=== PATIENT | male | born 1950 | race Caucasian/White ===

== ENCOUNTER 2017-10-28 13:00 | Outpatient (CLI) | payer MEDICARE, BC | END 2017-10-28 13:01 | disposition home or self-care (01) | LOC: BICRAD 13:00 | PROVIDERS: ATTEND Family Medicine | DX: M47.22 Other spondylosis with radiculopathy, cervical region (principal); Z98.1 Arthrodesis status | CPT/HCPCS: 72052 ==

== ENCOUNTER 2018-06-15 15:30 | Outpatient (CLI) | payer MEDICARE, BC ==
[~2018-06-15 15:30] MED LIST: Gadobenate Dimeglumine 529 MG/1 ML (20ML VIAL) ONE
--- NOTE | 2018-06-15 17:49 | MRI ---
MRI LUMBAR SPINE WITH AND WITHOUT CONTRAST: INDICATIONS: A 68-year-old male with low back pain for six to eight months with a history of two back surgeries in 1994. TECHNIQUE: Multiplanar, multisequence MR images were obtained of the lumbar spine with and without contrast. Th e patient received 16 mL of MultiHance for the examination. FINDINGS: The visualized retroperitoneum and paravertebral soft tissues are normal appearing. The conus is seen to terminate at approximately L1. There is post procedural change of a left hemila minectomy at L5. At L5-S1, there is a broad-based disk bulge with a superimposed central disk protrusion. There is fa cet hypertrophy bilaterally. There is loss of disk space height. Constellation of findings induces moderate bilateral neural foraminal narrowing. At L4-L5, there is a broad-based disk bulge with a superimposed left paracentral to left foraminal di sk protrusion. The disk protrusion causes severe left lateral recess narrowing with probable impinge ment of the traversing left L5 nerve root, best seen on image 35 of series 7 and on image 14 of serie s 3. The protrusion also induces moderate left neural foraminal narrowing. There is mild right neur al foraminal narrowing due to the broad-based bulge and facet hypertrophy. At L3-L4, there is broad-based bulge with facet hypertrophy, inducing mild bilateral neural foraminal narrowing. The broad-based bulge does cause some mild left lateral recess narrowing with encroachme nt of the traversing left L4 nerve root, without definite impingement, best seen on image 28 of serie s 4. At L2-L3, there is mild facet joint degenerative change and broad-based bulge. At L1-L2, there is no appreciable central canal or neural foraminal narrowing. At T12-L1, there is no appreciable central canal or neural foraminal narrowing. Post contrast images demonstrate no significant abnormal enhancement. IMPRESSION: 1. Left paracentral disk protrusion at L4-L5 induces severe left lateral recess narrowing with proba ble impingement of the traversing left L5 nerve root. The protrusion extends into the left neural fo ramina, causing moderate left-sided neural foraminal narrowing. 2. Moderate bilateral neural foraminal narrowing at L5-S1. 3. There is mild left lateral recess narrowing at L3-L4 due to an asymmetric left broad-based bulge. This encroaches on the traversing left L4 nerve root without definite impingement. POS: [facility]
== END 2018-06-15 15:31 | disposition home or self-care (01) ==
LOC: SCSMRI 15:30
PROVIDERS: ATTEND Family Medicine
DX: M51.16 Intervertebral disc disorders with radiculopathy, lumbar region (principal); M99.83 Other biomechanical lesions of lumbar region
CPT/HCPCS: 72158; A9579

== ENCOUNTER 2018-11-24 07:58 | Outpatient (CLI) | payer MEDICARE, BC ==
[2018-11-24] MEDS ORDERED: Gadobenate Dimeglumine 529 MG/1 ML (20ML VIAL) ONE (11:43)
--- NOTE | 2018-11-24 12:01 | MRI ---
MRI CERVICAL SPINE WITH AND WITHOUT CONTRAST: Date: 11/24/18 Multiplanar, multisequential imaging of cervical spine obtained. Postcontrast images obtained. INDICATION: Cervical radiculopathy. FINDINGS: Postoperative changes are noted at C4-5. Anterior plate and screws are present which produce artifact . Mild anterior wedging of the C4 and C5 vertebra. Posterior height and alignment is preserved. There is a slight posterolisthesis of C5-6. At C3-4, mild posterior disc bulge and spondylosis efface the anterior subarachnoid space and abut th e anterior cord, slightly more pronounced paracentrally on the left. Mild foraminal narrowing due to facet and uncinate hypertrophy. Postoperative changes at C4-5. Anterior subarachnoid space is mildly effaced due to spondylosis. Bila teral foraminal narrowing at this level due to uncinate and facet hypertrophy. At C5-6, disc bulge and spondylosis abut the anterior cord. Facet and uncinate hypertrophy results in mild foraminal narrowing bilaterally. At C6-7, minimal disc bulge. Anterior subarachnoid space is minimally effaced. No significant central canal or foraminal stenosis. Cord signal appears normally maintained. IMPRESSION: 1. Postoperative changes at C4-5 as described. 2. Posterior disc bulge and spondylosis at C3-4 imping on the anterior cord, slightly more prominent to the left of midline. Spondylosis at C5-6 is also noted as described. POS: [facility]
== END 2018-11-24 07:59 | disposition home or self-care (01) ==
LOC: BICMRI 07:58
PROVIDERS: ATTEND Family Medicine
DX: M47.22 Other spondylosis with radiculopathy, cervical region (principal); M50.11 Cervical disc disorder with radiculopathy, high cervical region; Z98.890 Other specified postprocedural states
CPT/HCPCS: 72156; 82565; A9577

== ENCOUNTER 2018-12-09 14:36 | Outpatient (CLI) | payer MEDICARE, BC ==
--- NOTE | 2018-12-09 15:03 | RAD ---
LUMBAR SPINE 3 VIEWS: INDICATION: Low back pain. FINDINGS: Lateral views obtained in neutral, flexion, and extension positions. Lumbar vertebrae maintain normal height and alignment. Loss of disk space at L5-S1. Mild degenerati ve spurring from all lumbar vertebrae. Prominent facet hypertrophy. No evidence of listhesis seen o n the neutral position. Slight posterior listhesis at L4-5 noted on extension. IMPRESSION: Degenerative changes of the lumbar spine as described above. POS: [facility]
--- NOTE | 2018-12-09 15:06 | RAD ---
CERVICAL SPINE 3 VIEWS: Lateral views obtained with neutral, flexion, and extension positions. INDICATION: Neck pain. Followup fusion procedure. There has been anterior fusion procedure with anterior plate and screws transfixing C4-5. Interbody implant and partial interbody fusion is noted. The cervical vertebrae maintain height and alignment. There is disk space loss at C5-6. Prominent a nterior osteophytes at C5-6. Slight posterior listhesis at C5-6 measured at approximately 2 mm. The other disks are preserved. Mild spurring from the other vertebrae. Mild facet hypertrophy. The posterior listhesis at C5-6 appears to exacerbate slightly with extension and does correct with f lexion. IMPRESSION: Postoperative degenerative changes of the cervical spine as described. POS: [facility]
== END 2018-12-09 14:37 | disposition home or self-care (01) ==
LOC: SCSRAD 14:36
PROVIDERS: ATTEND Neurological Surgery
DX: M54.2 Cervicalgia (principal); M54.5 Low back pain; M47.812 Spondylosis without myelopathy or radiculopathy, cervical region; M47.816 Spondylosis without myelopathy or radiculopathy, lumbar region; Z98.890 Other specified postprocedural states
CPT/HCPCS: 72040; 72100

== ENCOUNTER 2019-02-04 13:26 | Outpatient (CLI) | payer MEDICARE, BC ==
--- NOTE | 2019-02-12 17:23 | ULT ---
ARTERIAL ULTRASOUND 02/04/19 HISTORY: Patient has a history of bilateral leg cramping at night relieved by exercise. Bilateral lower extremity Doppler examination was performed. Waveforms are triphasic throughout bilat erally. On the right, ankle brachial index is 1.13. On the left, ankle brachial index is 1.11. IMPRESSION: Normal Doppler ultrasound.
== END 2019-02-04 13:27 | disposition home or self-care (01) ==
LOC: ULT 13:26
PROVIDERS: ATTEND Family Medicine
DX: I73.9 Peripheral vascular disease, unspecified (principal)
CPT/HCPCS: 93922

== ENCOUNTER 2019-06-28 08:28 | Outpatient (CLI) | payer MEDICARE, BC ==
[2019-06-28 10:04] LABS: Hemoglobin 14.7 g/dL (14.0-18.0); Mean Corpuscular HGB CONC 34.8 g/dL (32.0-36.0); Mean Corpuscular Hemoglobin 31.8 pg (27.0-31.0); Mean Corpuscular Volume 91.3 fL (78.0-98.0); Mean Platelet Volume 7.8 fL (7.4-10.4); Platelet Count 191 thou/uL (130-400); RBC Distribution Width 12.1 % (11.5-14.5); Red Blood Cell (RBC) Count 4.62 mill/uL (4.70-6.10); White Blood Cell (WBC) Count 5.3 thou/uL (4.8-10.8)
[2019-06-28 10:12] LABS: INR-International Normal Ratio 1.1; PTT 34.3 SEC (22.9-36.1); Prothrombin Time 13.7 SEC (12.0-14.7)
== END 2019-06-28 08:29 | disposition home or self-care (01) ==
LOC: LABBT 08:28
PROVIDERS: ATTEND Neurological Surgery
DX: Z01.818 Encounter for other preprocedural examination (principal); M51.16 Intervertebral disc disorders with radiculopathy, lumbar region
CPT/HCPCS: 85027; 85610; 85730; 93005; 93010

== ENCOUNTER 2019-07-02 05:45 | Day surgery (SDC) | payer MEDICARE, BC ==
[2019-06-28 08:46] VITALS: BMI 23.8
--- NOTE | 2019-06-30 14:04 | HP ---
HISTORY OF PRESENT ILLNESS: Mr. Pires is back in our office. He is a 69-year-old male, met first in November for some disk disease at L4-5. He has had prior surgery at L5-S1. He states that with conservative measures, his pain is still getting worse and he would like to discuss surgery. Injections have been done and they have failed and he would like to proceed. The patient describes pain in the low back, back of his leg, and top of his foot. REVIEW OF SYSTEMS: 10-point review of systems has been completed and is negative other than stated in the above HPI. PAST MEDICAL HISTORY: Hyperlipidemia, diabetes, arthritis, history of cervical fusion, sacroiliac disease, and irregular heartbeat. SURGICAL HISTORY: C4-5 fusion in 2012, L5 microdiskectomy x2 in 1994, cataract right eye, and prostate biopsy. FAMILY HISTORY: Father is , hearing loss, diabetes, heart attack, arthritis, depression, suicide. Mother is diagnosed with heart disease, high cholesterol, and arthritis. SOCIAL HISTORY: The patient is a nonsmoker. MEDICATIONS: Aspirin, vitamin D, fish oil, losartan, acyclovir, glipizide, gabapentin, Farxiga, and Benadryl. ALLERGIES: NAPROXEN AND METFORMIN. PHYSICAL EXAMINATION: CONSTITUTIONAL: The patient is alert and oriented x3. Appears nontoxic. RESPIRATORY: Normal work of breathing on room air. Symmetric chest rise. NEUROLOGIC: Gait and station, normal. Motor exam, positive single leg raise, right; 5/5 bilateral strength in hip flexion, knee flexion, knee extension, dorsiflexion, plantarflexion, EHL; left L5 radiculopathy. Rotation of bilateral hips normal. Deep tendon reflexes diminished bilaterally. Negative Babinski. No clonus. Sensory exam, left lateral foot decreased sensation since prior surgery. IMAGING: MRI lateral recess and far-lateral disk, L4-5 left; some scar tissue at L5-S1. Flexion-extension x-rays, stable. ASSESSMENT AND PLAN: Lumbar radiculopathy, intervertebral disk disorder with radiculopathy in lumbar region. Dr. Jang has offered surgery, redo L5-S1 and left L4-5 laminectomy. INFORMED CONSENT: We have discussed indications, risks, benefits, alternatives, expected results from surgery. The risks discussed included, but were not limited to, bleeding, infection, CSF leak, nerve damage, weakness, incontinence, cauda equina injury, arachnoiditis, paralysis, ventilator dependence, wheelchair dependence, loss of vision, cardiopulmonary complications of anesthesia, or . Long-term complications discussed included, but were not limited to spinal instability and need for further surgery. The patient states he understands the risks and is willing to proceed. Job ID: [id number]
[2019-07-02] MEDS ORDERED: Sodium Chloride 0.9% 20 ML ONE (06:00)
[2019-07-02] MEDS ORDERED: Thrombin 5000 UNITS/5 ML VIAL ONE (06:00)
[2019-07-02] MEDS ORDERED: Bupivacaine HCl 0.5%/Epinephrine 1:200,000/PF 30 ml Vial ONE (06:00)
[2019-07-02] MEDS ORDERED: Fentanyl 100 MCG/2 ML VIAL ONE ×3 (07:01→11:02)
[2019-07-02] MEDS ORDERED: Fentanyl 250 MCG/5 ML VIAL ONE (07:05)
[2019-07-02] MEDS ORDERED: Acetaminophen/Codeine 30-300mg Tablet ONE (12:21)
--- NOTE | 2019-07-02 16:22 | OP ---
DATE OF PROCEDURE: 07/02/2019 STONE DRESSER: Leydi Clark PA-C PREOPERATIVE INDICATIONS: Treat pain and prevent neurological deterioration. PREOPERATIVE DIAGNOSES: Left-sided L5 radiculopathy, left-sided mild S1 radiculopathy, left L4-L5 intervertebral disk protrusion with lateral recess stenosis, and L5-S1 prior surgery with scar tissue. POSTOPERATIVE DIAGNOSES: Left-sided L5 radiculopathy, left-sided mild S1 radiculopathy, left L4-L5 intervertebral disk protrusion with lateral recess stenosis, and L5-S1 prior surgery with scar tissue. PROCEDURES PERFORMED: Reopening of lumbar incision; left-sided partial hemilaminectomy, medial facetectomy, foraminotomy, and microdiskectomy at L4-L5; left-sided redo partial hemilaminectomy, medial facetectomy, and foraminotomy at L5-S1; operating microscope. PREOPERATIVE MEDICATIONS: Ancef 2 g IV. DRAIN NUMBER: Zero. DRAIN TYPE: None. DESCRIPTION OF PROCEDURE: The patient was brought to the operating room. General endotracheal anesthesia was induced. The patient was positioned prone on the operating table with his chest and hips supported by gel-filled chest rolls. A lateral fluoro radiograph was used to confirm the previous incision would give us access to the L4, L5, and S1 segments of the lumbosacral spine. The skin was sterilely prepped and draped. We opened the previous incision and extended it superiorly. We controlled bleeding with bipolar cautery. We used monopolar cautery to dissect through subcutaneous tissues to the thoracodorsal fascia. We incised the fascia left to the midline and reflected the paraspinal muscles and scar tissue off the spinous processes of L4, L5, and S1. A self-retaining retractor was placed, and a lateral fluoro radiograph confirmed the levels upon which we were operating. We then used a curette to loosen scar tissue from the hemilaminectomy defect at L5-S1. Using Kerrisons, we widened our hemilaminectomy there, performed a medial facetectomy, and removed the superior portion of the S1 lamina to get ourselves around all of the scar tissue. We then moved to L4-L5. Here, we used an angled curette to identify the ventral surface of the L4 lamina. We performed a partial hemilaminectomy and medial facetectomy with a 3 mm Kerrison rongeur. We removed the yellow ligament in a piecemeal fashion. We brought the operative microscope in the field. Under microscopic magnification using microsurgical techniques, we widened our hemilaminectomy at L4-L5 until we were lateral to the thecal sac and could identify the L5 nerve root. We performed a foraminotomy over that nerve root and removed the superior portion of the L5 lamina until a Avery ball probe could pass out the foramen without impingement. We then followed the nerve root up to the interspace, and it was tethered posteriorly by protruding disk, and there was a small herniated portion of the disk as well in the ventral aspect of the nerve root. With a nerve root retractor, we gently retracted it medially. We the fibers attaching the nerve to the disk, and then it was mobilized quite well. We removed the loose disk fragments from the ventral epidural space, and then we turned our attention to the bulging annulus. We reached inside the annulus, and the loose disk fragments were reduced towards the opening and removed in a piecemeal fashion. There were multiple loose fragments laterally and out the foramen, which were reduced back into the canal and removed, and then there was some loose fragments under the protruding annulus medially, which were also removed. All the remainder of the disk was firmly adherent to the endplates and left intact. We irrigated here and then turned our attention at L5-S1. At L5-S1, there was significant amount of scar tissue. This had to be carefully dissected on the operative microscope. We identified the dura above and below the scar and then dissected in either direction clearly visualizing the entire S1 nerve root and the lateral aspect of the common thecal sac. The S1 nerve root was tethered over under the facet joint by scar tissue attaching it to the intervertebral disk space. We loosened all these attachments, coagulated them, and cut them sharply. This mobilized the S1 nerve root easily, removed built-up scar tissue over the annulus, and ensured a Avery ball probe could pass through the lateral recess and out the foramen with the S1 nerve root without any impingement. We then performed a foraminotomy from above and from the side around the L5 nerve root once again to widen the exit point for that nerve. We then irrigated copiously with bacitracin irrigation. We controlled all bleeding with gentle bipolar cautery and waxing of the bone edges. We infused local anesthetic in the paraspinal muscles. We closed the wound in anatomical layers, and we applied a sterile dressing. This was a clean case, no contamination. Job ID: [id number]
== END 2019-07-02 13:55 | disposition home or self-care (01) ==
LOC: SDC 05:45
PROVIDERS: ATTEND Neurological Surgery
PROC: 01NB0ZZ Release Lumbar Nerve, Open Approach (ICD-10-PCS; principal; 2019-07-02)
PROC: 0SB20ZZ Excision of Lumbar Vertebral Disc, Open Approach (ICD-10-PCS; 2019-07-02)
DX: M48.061 Spinal stenosis, lumbar region without neurogenic claudication (principal); M51.16 Intervertebral disc disorders with radiculopathy, lumbar region; E78.5 Hyperlipidemia, unspecified; E11.9 Type 2 diabetes mellitus without complications; M19.90 Unspecified osteoarthritis, unspecified site; Z79.4 Long term (current) use of insulin; Z79.82 Long term (current) use of aspirin; Z79.899 Other long term (current) drug therapy; Z88.6 Allergy status to analgesic agent; Z88.8 Allergy status to other drugs, medicaments and biological substances; Z98.1 Arthrodesis status
CPT/HCPCS: 36416; 76000; J0670; J0690; J3010; J3370; J3490

== ENCOUNTER 2019-07-03 19:03 | Emergency (ER) | payer MEDICARE, BC ==
[2019-07-03] MEDS ORDERED: Morphine 4 MG/ML VIAL ONE ×2 (20:00→22:09)
[2019-07-03] MEDS ORDERED: Ondansetron PF 4 MG/2 ML Vial ONE (20:00)
[2019-07-03 20:30] LABS: #Lymphocytes 0.9 thou/uL (1.20-3.40); #Monocytes 1.4 thou/uL (0.11-0.59); #Neutrophils 7.9 thou/uL (1.40-6.50); %Basophils 0.3 % (0.0-1.0); %Eosinophils 0.1 % (0.0-10.0); %Lymphocytes 8.8 % (21.0-51.0); %Neutrophils 76.8 % (42.0-75.0); Hemoglobin 12.8 g/dL (14.0-18.0); Mean Corpuscular HGB CONC 35.1 g/dL (32.0-36.0); Mean Corpuscular Hemoglobin 32.6 pg (27.0-31.0); Mean Corpuscular Volume 92.9 fL (78.0-98.0); Mean Platelet Volume 7.7 fL (7.4-10.4); Platelet Count 137 thou/uL (130-400); Red Blood Cell (RBC) Count 3.93 mill/uL (4.70-6.10); White Blood Cell (WBC) Count 10.3 thou/uL (4.8-10.8)
[2019-07-03 20:52] LABS: ALT (SGPT) 22 U/L (8-55); AST (SGOT) 29 U/L (5-34); Albumin 3.8 g/dL (3.4-4.8); Alkaline Phosphatase 50 U/L (40-110); Anion Gap 10 mmol/L (10-20); BUN (Urea Nitrogen) 11 mg/dL (8.4-25.7); Calc. Creatinine Clearance 0 mL/min (70-130); Carbon Dioxide 26 mmol/L (23-31); Chloride 97 mmol/L (98-107); Estimated GFR-MDRD 72; Globulin 2.3 g/dL (2.4-3.5); Glucose 127 mg/dL (83-110); Potassium 3.9 mmol/L (3.5-5.1); Protein, Total 6.1 g/dL (5.8-8.1); Sodium 129 mmol/L (136-145)
[2019-07-03 21:16] LABS: Bilirubin Negative (Negative); Blood, Urine Negative (Negative); Clarity Clear (Clear); Glucose, Urine (Dipstick) 100 mg/dL (Negative); Leukocyte Negative Leu/uL (Negative); Nitrite Negative (Negative); Protein, Urine (Dipstick) Negative (Neg-Trace); Urobilinogen Normal mg/dL (Less than 2)
[2019-07-03] MEDS ORDERED: Dexamethasone 10 MG/ML VIAL ONE (21:21)
== END 2019-07-03 22:26 | disposition home or self-care (01) ==
LOC: ERS 19:03
DX: M54.16 Radiculopathy, lumbar region (principal); R50.9 Fever, unspecified; E11.9 Type 2 diabetes mellitus without complications; E78.5 Hyperlipidemia, unspecified; Z79.4 Long term (current) use of insulin; Z79.899 Other long term (current) drug therapy
CPT/HCPCS: 80053; 81003; 83605; 85025; 96374; 96375; 96376; J1100; J2270; J2405

== ENCOUNTER 2019-10-01 10:43 | Outpatient (CLI) | payer MEDICARE, BC ==
[~2019-10-01 10:43] MED LIST changes: -Gadobenate Dimeglumine 529 MG/1 ML (20ML VIAL) ONE; +Iopamidol-370 76% 500 ML 1 ML ONE
--- NOTE | 2019-10-01 13:17 | CT ---
CT Abdomen Pelvis W WO con HISTORY: Hematuria COMPARISON: None. FINDINGS: Each renal collecting system, ureter, and urinary bladder are decompressed without stone ev ident. Arising from the right side of the urinary bladder wall is a lobular soft tissue density filling defect that measures up to 3.0 cm length by 4.2 cm depth by 2.1 cm width. No other urinary tr act filling defects are evident. No renal masses apparent. Lung bases are clear. Diverticula arise from the colon without adjacent inflammation. Degenerative an d postoperative changes lumbar spine. IMPRESSION: Mucosal neoplasm right side of the urinary bladder. Diverticulosis. No evidence of diverticulitis.
== END 2019-10-01 10:44 | disposition home or self-care (01) ==
LOC: BICCT 10:43
PROVIDERS: ATTEND Family Medicine
DX: R31.0 Gross hematuria (principal); C67.9 Malignant neoplasm of bladder, unspecified
CPT/HCPCS: 74178; 82565; Q9967

== ENCOUNTER 2019-10-13 08:05 | Outpatient (CLI) | payer MEDICARE, BC ==
[2019-10-13 09:59] LABS: Hemoglobin 16.5 g/dL (14.0-18.0); Mean Corpuscular HGB CONC 34.1 g/dL (32.0-36.0); Mean Corpuscular Hemoglobin 30.8 pg (27.0-31.0); Mean Corpuscular Volume 90.6 fL (78.0-98.0); Mean Platelet Volume 8.1 fL (7.4-10.4); Platelet Count 189 thou/uL (130-400); RBC Distribution Width 12.6 % (11.5-14.5); Red Blood Cell (RBC) Count 5.34 mill/uL (4.70-6.10); White Blood Cell (WBC) Count 5.8 thou/uL (4.8-10.8)
[2019-10-13 10:07] LABS: PTT 36.5 SEC (22.9-36.1); Prothrombin Time 13.3 SEC (12.0-14.7)
[2019-10-13 10:15] LABS: Anion Gap 12 mmol/L (10-20); BUN (Urea Nitrogen) 18 mg/dL (8.4-25.7); Calc. Creatinine Clearance 0 mL/min (70-130); Calcium 9.6 mg/dL (7.8-10.44); Carbon Dioxide 26 mmol/L (23-31); Chloride 107 mmol/L (98-107); Estimated GFR-MDRD 75; Glucose 123 mg/dL (83-110); Potassium 4.3 mmol/L (3.5-5.1); Sodium 141 mmol/L (136-145)
[2019-10-13 11:24] LABS: Bacteria/HPF None Seen HPF (None Seen); Bilirubin Negative (Negative); Blood, Urine Negative (Negative); Clarity Clear (Clear); Glucose, Urine (Dipstick) Greater than 1000 mg/dL (Negative); Leukocyte Negative Leu/uL (Negative); Nitrite Negative (Negative); Protein, Urine (Dipstick) Negative (Neg-Trace); RBC/HPF 0-3 HPF (0-3); Squamous Epithelial 0-3 HPF (0-3); Urobilinogen Normal mg/dL (Less than 2)
== END 2019-10-13 08:06 | disposition home or self-care (01) ==
LOC: LABBT 08:05
PROVIDERS: ATTEND Urology
DX: Z01.818 Encounter for other preprocedural examination (principal); N32.89 Other specified disorders of bladder
CPT/HCPCS: 80048; 81001; 85027; 85610; 85730; 87086; 93005; 93010

== ENCOUNTER 2019-10-21 06:06 | Day surgery (SDC) | payer MEDICARE, BC ==
[2019-10-13 08:37] VITALS: BMI 23.0
[2019-10-21] MEDS ORDERED: Levofloxacin 500 mg/D5W 100 ml Premix Bag ONE (06:15)
[2019-10-21] MEDS ORDERED: Fentanyl 100 MCG/2 ML VIAL ONE ×2 (07:42→09:42)
[2019-10-21] MEDS ORDERED: mitoMYcin 40 MG in Sterile Water 20 ML IV SCH (08:15)
[2019-10-21] MEDS ORDERED: SUGAMMADEX SODIUM 200 MG/2 ML VIAL ONE (09:02)
[2019-10-21] MEDS ORDERED: B & O ONE (09:20)
[2019-10-21] MEDS ORDERED: Oxybutynin 5 MG TAB ONE (09:40)
--- NOTE | 2019-10-21 10:43 | OP ---
DATE OF PROCEDURE: 10/21/2019 SERVICE: Urology. PREOPERATIVE DIAGNOSIS: Bladder tumor. POSTOPERATIVE DIAGNOSIS: Bladder cancer. PROCEDURE PERFORMED: Transurethral resection of bladder tumor, greater than 5 cm and postoperative administration of intravesical Mitomycin C INDICATIONS FOR PROCEDURE: Mr. Pires is a 69-year-old white male who presented to [facility] with gross hematuria. He underwent a CT by his primary care physician, which demonstrated a large bladder tumor within the lumen of the bladder. The patient elected to forego outpatient cystoscopy and go directly to the operating room for resection of the bladder mass. Risks and benefits of the procedure were discussed and he has agreed to proceed forward. DESCRIPTION OF PROCEDURE: After identification of armband and verification of consent, the patient was brought back to the operating room where he underwent general anesthesia with endotracheal intubation and full paralysis. He was then placed in dorsal lithotomy position and prepped and draped in the usual sterile fashion. After appropriate time-out, a lubricated 26-Afghan resectoscope sheath with visual obturator was passed through the urethra into the bladder. A full cystoscopy was performed, which demonstrated a large frondular papillary type tumor, growing off the right lateral bladder wall, approximately 2 to 3 cm above the ureteral orifice. There were no other tumors noted initially as the tumor was very large and obscuring much of the view behind the tumor in that location. The visual obturator was switched out for the bipolar resectoscope thin loop for the bladder resections. Resection was carried out at the top of the tumor and resected downward until it was flushed with the bladder. As we did approach the bladder base, more paralytics were administered secondary to some obturator reflexes, which were occurring, and the bladder was decompressed for the final resection, carried out along the bladder base, at which point no further obturator reflexes were encountered. Resection was taken down until detrusor muscle fibers were identified. No perforation occurred through the bladder wall. Upon completion, the entire tumor was resected. After all of the bladder tumor pieces were evacuated using the [employer] evacuator, meticulous hemostasis was then performed along the resection site until there were no identifiable bleeding vessels. There was one additional satellite tumor noted more cephalad and medial to the original lower tumor, which was extremely small, probably about 3 or 4 mm in size. This was resected and then cauterized. A full cystoscopy was then performed of all surfaces of the bladder and no additional tumors were identified. There were multiple large parasitic vessels surrounding the area of the tumor, but no actual tumor was found on these locations other than the very large vessels. These were left intact to avoid significant bleeding. The resection site was reinspected and no bleeding was identified. There was excellent hemostasis. Both ureters were in the orthotopic location, unharmed. There was clear yellow efflux noted out of both ureters. Satisfied that all the tumor had been resected that was visible. The bladder was completely evacuated and then refilled partially with sterile saline for insertion of the catheter at the end of the case. The resectoscope loop was then removed and an 18-Afghan Lowery catheter was passed with ease into the patient's bladder, 10 mL of sterile water placed into the balloon, 40 mg of mitomycin-C were then instilled into the patient's bladder , diluted in 20 mL of water. A catheter plug was placed into the catheter and a B and O suppository placed in the patient's rectum. He was then taken out of positioning, awakened, taken to PACU for recovery in stable condition. COMPLICATIONS: None. ESTIMATED BLOOD LOSS: Minimal. RETAINED TUBES AND DRAINS: An 18-Afghan Lowery catheter. SPECIMENS: Bladder tumor for routine pathologic evaluation. DISPOSITION: The patient will be discharged home and follow up with me on an outpatient basis. I will follow up and provide additional treatment based on tumor staging and grading. Job ID: [id number] [facility]
[2019-10-21] MEDS ORDERED: Lidocaine 1% PF 5 ML VIAL ONE (11:07)
[2019-10-21] MEDS ORDERED: PROPOFOL 200 MG/20 ML VIAL ONE (11:07)
[2019-10-21] MEDS ORDERED: EPHEDRINE 25 MG/5 ML SYRINGE ONE (11:07)
[2019-10-21] MEDS ORDERED: Rocuronium Bromide 10 MG/ML (10ML VIAL) ONE (11:07)
[2019-10-21] MEDS ORDERED: PHENYLEPHRINE-NS 100 MCG/ML 10 ML SYRINGE ONE (11:07)
[2019-10-21] MEDS ORDERED: Ondansetron PF 4 MG/2 ML Vial ONE (11:07)
[2019-10-21] MEDS ORDERED: HYDROcodone/Acetaminophen 5/325 mg Tablet ONE ×2 (13:01→13:03)
== END 2019-10-21 14:15 | disposition home or self-care (01) ==
LOC: SDC 06:06
PROVIDERS: ATTEND Urology
PROC: 0T5B8ZZ Destruction of Bladder, Via Natural or Artificial Opening Endoscopic (ICD-10-PCS; principal; 2019-10-21)
DX: C67.2 Malignant neoplasm of lateral wall of bladder (principal); E11.9 Type 2 diabetes mellitus without complications; E78.00 Pure hypercholesterolemia, unspecified; E78.5 Hyperlipidemia, unspecified; M19.90 Unspecified osteoarthritis, unspecified site; Z79.2 Long term (current) use of antibiotics; Z79.899 Other long term (current) drug therapy; Z87.891 Personal history of nicotine dependence; Z88.6 Allergy status to analgesic agent; Z88.8 Allergy status to other drugs, medicaments and biological substances
CPT/HCPCS: 52240; 82962; 88307; J9280; 36416; J1956; J2001; J2405; J2704; J3010

== ENCOUNTER 2020-01-03 13:47 | Outpatient (CLI) | payer MEDICARE, BC ==
--- NOTE | 2020-01-03 14:03 | RAD ---
LEFT HIP 2 VIEWS: HISTORY: Piriformis syndrome on the left. Left hip pain. FINDINGS/IMPRESSION: There are mild degenerative changes. No fracture, dislocation, or bony destruction is identified. POS: [facility]
== END 2020-01-03 13:48 | disposition home or self-care (01) ==
LOC: BICRAD 13:47
PROVIDERS: ATTEND Family Medicine
DX: M54.17 Radiculopathy, lumbosacral region (principal); M16.12 Unilateral primary osteoarthritis, left hip

== ENCOUNTER 2020-01-31 09:38 | Outpatient (CLI) | payer MEDICARE, BC ==
--- NOTE | 2020-01-31 11:45 | RAD ---
PA CHEST AND RIGHT RIB SERIES: Date: 01/31/2020 HISTORY: Pain in right chest and posterior right lower rib pain. FINDINGS/IMPRESSION: The heart size is normal. The lungs are expanded without lobar consolidation, pneumothoraces, or pleu ral effusions. There are degenerative changes in the spine and acromioclavicular joints. No right-satya ed rib fracture or bony destruction is seen. POS: [facility]
== END 2020-01-31 09:39 | disposition home or self-care (01) ==
LOC: BICRAD 09:38
PROVIDERS: ATTEND Family Medicine
DX: R07.81 Pleurodynia (principal); M19.019 Primary osteoarthritis, unspecified shoulder; M47.9 Spondylosis, unspecified

== ENCOUNTER 2020-02-14 | Outpatient (CLI) | payer MEDICARE, BC | END 2020-02-14 13:08 | disposition home or self-care (01) | DX: M54.17 Radiculopathy, lumbosacral region (principal); M51.26 Other intervertebral disc displacement, lumbar region; Z98.890 Other specified postprocedural states ==

== ENCOUNTER 2020-02-21 05:53 | Outpatient (CLI) | payer MEDICARE, BC, OTHER ==
[2020-02-21 11:54] LABS: Bacteria/HPF None Seen HPF (None Seen); Bilirubin Negative (Negative); Blood, Urine Negative (Negative); Clarity Clear (Clear); Glucose, Urine (Dipstick) Greater than 1000 mg/dL (Negative); Leukocyte Negative Leu/uL (Negative); Nitrite Negative (Negative); Protein, Urine (Dipstick) Negative (Neg-Trace); RBC/HPF 0-3 HPF (0-3); Squamous Epithelial None Seen HPF (0-3); Urobilinogen Normal mg/dL (Less than 2); WBC/HPF 0-3 HPF (0-3)
[2020-02-21 11:56] LABS: Hemoglobin 16.7 g/dL (14.0-18.0); Mean Corpuscular HGB CONC 34.4 g/dL (32.0-36.0); Mean Corpuscular Hemoglobin 32.4 pg (27.0-31.0); Mean Corpuscular Volume 94.1 fL (78.0-98.0); Mean Platelet Volume 8.2 fL (7.4-10.4); Platelet Count 184 thou/uL (130-400); RBC Distribution Width 12.6 % (11.5-14.5); Red Blood Cell (RBC) Count 5.15 mill/uL (4.70-6.10); White Blood Cell (WBC) Count 5.1 thou/uL (4.8-10.8)
[2020-02-21 12:06] LABS: PTT 33.9 sec (22.9-36.1); Prothrombin Time 13.3 sec (12.0-14.7)
[2020-02-21 12:30] LABS: Anion Gap 13 mmol/L (10-20); BUN (Urea Nitrogen) 21 mg/dL (8.4-25.7); Calc. Creatinine Clearance 0 mL/min (70-130); Calcium 10.2 mg/dL (7.8-10.44); Carbon Dioxide 26 mmol/L (23-31); Chloride 105 mmol/L (98-107); Estimated GFR-MDRD 70; Glucose 138 mg/dL (83-110); Potassium 4.5 mmol/L (3.5-5.1); Sodium 139 mmol/L (136-145)
[2020-02-21 20:20] LABS: SARS-CoV-2 MS2 Positive; SARS-CoV-2 N Gene Negative; SARS-CoV-2 S Gene Negative; SARS-CoV-2 orf1ab Negative
== END 2020-02-21 05:54 | disposition home or self-care (01) ==
LOC: LABBT 05:53
PROVIDERS: ATTEND Family Medicine
DX: Z01.812 Encounter for preprocedural laboratory examination (principal); Z11.59 Encounter for screening for other viral diseases; C67.2 Malignant neoplasm of lateral wall of bladder; R31.0 Gross hematuria; E11.9 Type 2 diabetes mellitus without complications; I73.9 Peripheral vascular disease, unspecified; N52.1 Erectile dysfunction due to diseases classified elsewhere
CPT/HCPCS: 80048; 81001; 85027; 85610; 85730; 87086; U0003; 87635

== ENCOUNTER 2020-02-24 06:18 | Day surgery (SDC) | payer MEDICARE, BC ==
[2020-02-17 13:16] VITALS: BMI 22.4
[2020-02-24] MEDS ORDERED: Levofloxacin 500 mg/D5W 100 ml Premix Bag ONE (06:34)
[2020-02-24] MEDS ORDERED: Fentanyl 100 MCG/2 ML VIAL ONE ×2 (07:10→08:35)
[2020-02-24] MEDS ORDERED: Midazolam HCl 2 mg/2 ml Vial ONE (07:33)
[2020-02-24] MEDS ORDERED: Phenazopyridine HCl 97.5 MG TABLET ONE (08:24)
--- NOTE | 2020-02-24 08:31 | OP ---
DATE OF PROCEDURE: 02/24/2020 SERVICE: Urology. PREOPERATIVE DIAGNOSIS: Bladder cancer. POSTOPERATIVE DIAGNOSIS: Bladder cancer. PROCEDURE PERFORMED: Transurethral resection of bladder tumor, 1 cm. INDICATION FOR PROCEDURE: Mr. Pires is a 69-year-old white male with a history of previous bladder cancer, which came back low-grade. On surveillance cystoscopy, he was found to have a second tumor, for which he is now being brought to the operating room for resection. Risks and benefits have been discussed and he has agreed to proceed forward. DESCRIPTION OF PROCEDURE: After identification of armband and verification of consent, the patient was brought back to the operating room. He underwent general anesthesia with an LMA. He was then placed in dorsal lithotomy position and prepped and draped in usual sterile fashion. After appropriate time-out, a lubricated 26-Ugandan resectoscope sheath with visual obturator was passed with ease through the urethra into the bladder. Attention was turned to the left posterior bladder wall somewhat anteriorly where the tumor was identified. Using a bipolar resectoscope loop, the tumor was resected in its entirety. The base was thoroughly cauterized. Upon completion, there was no active tumor left or active bleeding. The tumors pieces were evacuated using the resectoscope sheath and sent off for routine pathologic evaluation. There were no other tumors noted on cystoscopy. The cystoscope was then removed. The patient was then awakened and taken to PACU for recovery in stable condition. COMPLICATIONS: None. ESTIMATED BLOOD LOSS: Minimal. RETAINED TUBES AND DRAINS: None. SPECIMENS: Bladder tumor. DISPOSITION: The patient will be discharged home and follow up with me in approximately 1 to 2 weeks for postop check. Job ID: [id number]
[2020-02-24] MEDS ORDERED: PROPOFOL 200 MG/20 ML VIAL ONE (11:33)
[2020-02-24] MEDS ORDERED: Lidocaine 1% PF 5 ML VIAL ONE (11:33)
== END 2020-02-24 11:09 | disposition home or self-care (01) ==
LOC: SDC 06:18
PROVIDERS: ATTEND Urology
PROC: 0TBB8ZX Excision of Bladder, Via Natural or Artificial Opening Endoscopic, Diagnostic (ICD-10-PCS; principal; 2020-02-24)
DX: C67.4 Malignant neoplasm of posterior wall of bladder (principal); E11.9 Type 2 diabetes mellitus without complications; I73.9 Peripheral vascular disease, unspecified; N52.1 Erectile dysfunction due to diseases classified elsewhere; E78.00 Pure hypercholesterolemia, unspecified; M19.90 Unspecified osteoarthritis, unspecified site; E78.5 Hyperlipidemia, unspecified; I49.1 Atrial premature depolarization; Z87.891 Personal history of nicotine dependence; Z79.4 Long term (current) use of insulin; Z79.899 Other long term (current) drug therapy; Z88.6 Allergy status to analgesic agent; Z88.8 Allergy status to other drugs, medicaments and biological substances; Z98.1 Arthrodesis status
CPT/HCPCS: 88307; J1956; J2001; J2250; J2704; J3010

== ENCOUNTER 2020-04-10 10:35 | Outpatient (CLI) | payer MEDICARE, BC ==
--- NOTE | 2020-04-10 15:29 | NM ---
WHOLE BODY BONE SCAN: Date: 04/10/2020 HISTORY: Right-sided rib pain. RADIOPHARMACEUTICAL: 31.4 mCi technetium-99m MDP injected intravenously. FINDINGS: Correlation is made with the right rib radiographs of 01/31/2020. There is a small focal area of increased uptake in the left posterolateral ninth rib. No other rib ab normalities are seen. There is increased uptake due to degenerative changes in the shoulders and elbows. Tracer excretion t hrough the kidneys is within normal limits. IMPRESSION: Focally increased uptake in the left ninth rib. Dedicated left rib radiographs should be obtained. POS: [facility]
== END 2020-04-10 10:36 | disposition home or self-care (01) ==
LOC: NM 10:35
PROVIDERS: ATTEND Specialist
DX: S22.41XA Multiple fractures of ribs, right side, initial encounter for closed fracture (principal)
CPT/HCPCS: 78306; A9503

== ENCOUNTER 2020-04-18 13:37 | Outpatient (CLI) | payer MEDICARE, BC ==
--- NOTE | 2020-04-18 14:15 | RAD ---
EXAM: LEFT RIBS THREE VIEWS 04/18/20 HISTORY: Contusion of rig left side. COMPARISON: Total body bone scan dated 04/10/20. FINDINGS: On the prior bone scan there was a focal area of some increased activity in the left posterior 9th ri b. This region is evaluated on this plain film examination. I cannot demonstrate a focal bone lesion or fracture associated with the posterolateral aspect of the left 9th rib. If this remains a clinical dilemma, a follow-up CT scan with special attention to this region might give some additional inform ation. IMPRESSION: No convincing evidence for acute left 9th rib fracture or healing fracture or definitive focal bone l esion. Depending upon concern, additional imaging with CT with special attention to this region might be of benefit. POS: [facility]
== END 2020-04-18 13:38 | disposition home or self-care (01) ==
LOC: BICRAD 13:37
PROVIDERS: ATTEND Specialist
DX: S20.212A Contusion of left front wall of thorax, initial encounter (principal)

== ENCOUNTER 2020-06-19 07:50 | Outpatient (CLI) | payer MEDICARE, BC, OTHER ==
[2020-06-20 15:28] LABS: SARS-CoV-2 MS2 Positive; SARS-CoV-2 N Gene Negative; SARS-CoV-2 S Gene Negative; SARS-CoV-2 by NAA Not Detected (NotDetected); SARS-CoV-2 orf1ab Negative
== END 2020-06-19 07:51 | disposition home or self-care (01) ==
LOC: LABBT 07:50
PROVIDERS: ATTEND Specialist
DX: M54.16 Radiculopathy, lumbar region (principal); M96.1 Postlaminectomy syndrome, not elsewhere classified; G89.29 Other chronic pain; Z20.828 Contact with and (suspected) exposure to other viral communicable diseases
CPT/HCPCS: 87635; U0003

== ENCOUNTER 2020-07-10 07:48 | Outpatient (CLI) | payer MEDICARE, BC, OTHER ==
[2020-07-11 11:06] LABS: SARS-CoV-2 MS2 Positive; SARS-CoV-2 N Gene Negative; SARS-CoV-2 S Gene Negative; SARS-CoV-2 by NAA Not Detected (NotDetected); SARS-CoV-2 orf1ab Negative
== END 2020-07-10 07:49 | disposition home or self-care (01) ==
LOC: LABBT 07:48
PROVIDERS: ATTEND Specialist
DX: M54.16 Radiculopathy, lumbar region (principal); M96.1 Postlaminectomy syndrome, not elsewhere classified; G89.4 Chronic pain syndrome; Z20.828 Contact with and (suspected) exposure to other viral communicable diseases
CPT/HCPCS: 87635; U0003

== ENCOUNTER 2020-07-13 05:52 | Day surgery (SDC) | payer MEDICARE, BC ==
[2020-07-12 15:09] VITALS: BMI 21.7
[2020-07-13] MEDS ORDERED: CEFAZOLIN 1 GM VIAL ONE (06:27)
[2020-07-13] MEDS ORDERED: EPINEPHrine 1 MG/ML AMP ONE ×2 (06:42→06:43)
[2020-07-13] MEDS ORDERED: Bupivacaine PF 0.5% 30 ML VIAL ONE (06:42)
[2020-07-13] MEDS ORDERED: Midazolam HCl 2 mg/2 ml Vial ONE (07:18)
[2020-07-13] MEDS ORDERED: Propofol 1,000 MG/100 ML VIAL IV ONE (07:18)
[2020-07-13] MEDS ORDERED: Fentanyl 100 MCG/2 ML VIAL ONE (07:18)
--- NOTE | 2020-07-13 09:09 | RAD ---
Thoracic spine 2 views intraoperative fluoroscopy HISTORY: Back pain. Dorsal column stimulator placement. FINDINGS: Intraoperative fluoroscopy was provided for dorsal column stimulator lead placement as perf ormed by Dr. Melita Wilson. Spot fluoroscopic images are included, with 2 metallic leads projecting over the midline central spinal canal. As labeled on the images, the lead to the left terminates at t he T8 level and the right lead terminates at the T7 level. Fluoroscopy time 4:51.
--- NOTE | 2020-07-13 11:25 | OP ---
DATE OF PROCEDURE: 07/13/2020 PREOPERATIVE DIAGNOSES: 1. Postlaminectomy syndrome. 2. Chronic pain syndrome. 3. Lumbar radiculopathy. POSTOPERATIVE DIAGNOSES: 1. Postlaminectomy syndrome. 2. Chronic pain syndrome. 3. Lumbar radiculopathy. PROCEDURE PERFORMED: 1. Spinal cord stimulator generator implant. 2. Spinal cord stimulator lead implant x2. SPECIMENS REMOVED: None. FINDINGS: None. DESCRIPTION OF PROCEDURE: The patient was taken to the procedure room, placed prone on the procedure room table. A time-out was performed. We used DuraPrep to prep the skin. Sterile drapes were applied. We used fluoroscopy to locate the interspace of T12-L1. We anesthetized the skin with 0.5% Marcaine with epinephrine. We made an incision and bluntly dissected down to fascia. We used a 14-gauge supplied Touhy needle and inserted this in a paramedian technique to achieve access at T12-L1. We used lost of resistance to air. Aspiration was negative for heme or CSF. An 8-contact lead was threaded up the midline of dorsal epidural space and this was just left of midline and we threaded it up to the bottom of T8. The contralateral lead placed on the right side in the exact same fashion at the same level was threaded up the midline dorsal epidural space and was left at the bottom of T7. Stimulation was performed with the patient awake and he noted paresthesia in all pain areas. After this, the needles were removed taking care not to move the leads. The needles and the stylettes were both taken out. Anchors were placed over the leads and these were affixed to the fascia using 2-0 silk suture x2 each. We did continuous fluoro and pulled on the leads and there was no motion. We then made an incision after anesthetizing the skin in the right upper buttock. We created a pocket by blunt dissecting under Ty's fascia inferiorly and superiorly. We made a tunnel with the tunneling device between the 2 incisions. The leads were threaded through the tunnel and brought to the battery pocket area. They were attached to the pocket. Torque wrench was used to fixate these to the battery. Tests were performed and all impedances were good. We inserted the battery in the pocket. We approximated the fascial layer using 2-0 Vicryl sutures in horizontal mattress. We then approximated the skin layer with a 3-0 Rapide in a subcuticular stitch. Dermabond was placed over this and once dry, we placed Steri-Strips and sterile 4 x 4 with Medipore tape. The patient was taken to Day Stay under stable condition. Job ID: [id number]
[2020-07-13] MEDS ORDERED: PROPOFOL 200 MG/20 ML VIAL ONE (11:37)
== END 2020-07-13 10:30 | disposition home or self-care (01) ==
LOC: SDC 05:52
PROVIDERS: ATTEND Specialist
PROC: 0JH70DZ Insertion of Multiple Array Stimulator Generator into Back Subcutaneous Tissue and Fascia, Open Approach (ICD-10-PCS; principal; 2020-07-13)
PROC: 00HU0MZ Insertion of Neurostimulator Lead into Spinal Canal, Open Approach (ICD-10-PCS; 2020-07-13)
DX: M96.1 Postlaminectomy syndrome, not elsewhere classified (principal); G89.4 Chronic pain syndrome; M51.16 Intervertebral disc disorders with radiculopathy, lumbar region; M48.07 Spinal stenosis, lumbosacral region; M47.27 Other spondylosis with radiculopathy, lumbosacral region; Z88.6 Allergy status to analgesic agent; Z88.8 Allergy status to other drugs, medicaments and biological substances; Z79.4 Long term (current) use of insulin; Z79.899 Other long term (current) drug therapy
CPT/HCPCS: 63650 ×2; 63685; 72070; 76000; 82962; C1778; C1787; L8679; L8689; 36416; 72020; J0171; J0690; J2250; J2704; J3010; S0020

== ENCOUNTER 2021-01-30 11:29 | Outpatient (CLI) | payer MEDICARE, BC | END 2021-01-30 11:30 | disposition home or self-care (01) | LOC: MRI 11:29 | PROVIDERS: ATTEND Specialist | DX: M54.12 Radiculopathy, cervical region (principal); G89.4 Chronic pain syndrome; M48.02 Spinal stenosis, cervical region | CPT/HCPCS: 72141 ==

== ENCOUNTER 2021-10-01 08:21 | Outpatient (CLI) | payer MEDICARE, BC | END 2021-10-01 08:22 | disposition home or self-care (01) | LOC: MRI 08:21 | PROVIDERS: ATTEND Specialist | DX: M51.16 Intervertebral disc disorders with radiculopathy, lumbar region (principal); Z98.890 Other specified postprocedural states | CPT/HCPCS: 72158; 82565 ==

== ENCOUNTER 2023-03-21 09:55 | Outpatient (CLI) | payer MEDICARE, BC | END 2023-03-21 09:56 | disposition home or self-care (01) | LOC: MRI 09:55 | PROVIDERS: ATTEND Family Medicine | DX: M47.27 Other spondylosis with radiculopathy, lumbosacral region (principal); M47.816 Spondylosis without myelopathy or radiculopathy, lumbar region; M48.061 Spinal stenosis, lumbar region without neurogenic claudication; M48.07 Spinal stenosis, lumbosacral region; Z98.890 Other specified postprocedural states | CPT/HCPCS: 72158; 82565 ==